=== PATIENT | female | born 1975 | race Caucasian/White ===

== ENCOUNTER 2023-09-14 18:58 | Emergency (ER) | payer OTHER, SELFPAY ==
--- NOTE | ~2023-09-14 | CT_ITS ---
EXAMINATION: CT abdomen pelvis w con DATE: 09/14/2023 23:22 INDICATION: Left lower quadrant abdominal pain TECHNIQUE: Computed tomography (CT) of the abdomen and pelvis was performed with 100 cc Omnipaque 350 intravenous contrast. The dose-length product was 1580.54 mGy-cm. Automated exposure control and ite rative reconstruction technique were employed. COMPARISON: None. FINDINGS: Lung bases unremarkable. Heart size normal. No significant pleural or pericardial effusion. Fatty infiltration of the liver. The spleen, pancreas, adrenal glands and kidneys are unremarkable. Gallbladder is present. No significant vascular abnormality. No lymphadenopathy. Small involuting cor pus luteal cyst of the left ovary measuring 2 cm. No evidence for diverticulitis. No free air or free fluid. No lymphadenopathy. No acute osseous abnormality. There is a transitional L5 vertebra. There is osteoarthritis of the hips. IMPRESSION: 1. Small involuting corpus luteal cyst of the left ovary measuring 2 cm. Reviewed, dictated and finalized at location A.
[2023-09-14 19:38] VITALS: BP 135/63; PULSE 104; RESP 20; TEMP 36.4; O2SAT 100
[2023-09-14 19:54] LABS: Basophils Absolute Auto 0.1 K/mm3 (0.0-0.1); Basophils Percent Auto 0.4 % (0.2-1.2); Eosinophils Absolute Auto 0.1 K/mm3 (0-0.3); Eosinophils Percent Auto 0.7 % (0-4.4); Hematocrit 41.1 % (37.0-47.0); Hemoglobin 12.9 g/dL (12.0-15.0); Immature Granulocyte Absolute 0.04 K/mm3 (0.00-0.031); Immature Granulocyte Percent A 0.3 % (0-0.5); Lymphocytes Absolute Auto 2.47 K/mm3 (0.9-3.2); Lymphocytes Percent Auto 18.4 % (18.3-44.2); Mean Corpuscular HGB Conc 31.4 g/dl (32-36); Mean Corpuscular Hemoglobin 27.7 pg (26-34); Mean Corpuscular Volume 88.4 fl (80-100); Mean Platelet Volume 9.5 fl (7.4-10.4); Monocytes Absolute Auto 0.7 K/mm3 (0.1-0.6); Monocytes Percent Auto 5.2 % (2.6-8.5); Neutrophils Absolute Auto 10.1 K/mm3 (1.3-6.7); Platelet Count Result 289 k/mm3 (150-375); Red Blood Count 4.65 M/mm3 (4.2-5.4); Red Cell Distribution Width 14.6 % (11.5-14.5); White Blood Count 13.4 K/mm3 (4.5-10.0)
[2023-09-14 20:06] LABS: Alanine Aminotransferase 25 U/L (6-35); Albumin Level 4.5 g/dL (3.5-5.1); Alkaline Phosphatase 72 U/L (38-126); Anion Gap 5 mmol/L (8-16); Aspartate Amino Transferase 25 U/L (14-36); Bilirubin,Total 0.7 mg/dL (0.2-1.3); Blood Urea Nitrogen 7 mg/dL (7-17); Calcium 9.5 mg/dL (8.4-10.2); Carbon Dioxide 28 mmol/L (22-30); Chloride 104 mmol/L (98-107); Estimated CRCL calculation 153 ml/min; Estimated Glomerular Filt Rate > 60; Glucose 92 mg/dL (65-110); Lipase 36 U/L (23-300); Potassium 3.7 mmol/L (3.4-5.0); Sodium 137 mmol/L (137-145)
[2023-09-14 20:16] LABS: Appearance Urine Clear (Clear); Bacteria Urine None Seen /hpf; Color Urine Yellow (Yellow); Non Pathogenic Casts 0-2; RBC Urine 0-2 /hpf (0-2); Squamous Epithelial Cell Urine None Seen /hpf (Few); WBC Urine 0-5 /hpf (0-3)
[2023-09-14 20:17] LABS: Add Urine Microscopic? YES; Bilirubin Urine Negative (Negative); Blood Urine Negative (Negative); Glucose Urine UA Negative (Negative); Ketones Urine 2+ mg/dL (Negative); Leukocyte Esterase Ur Negative LEU/UL (Negative); Nitrate Urine Negative (Negative); Protein Urine Negative (Negative); Specific Grav Ur 1.015 (1.001-1.035); Urobilinogen Urine 0.2 mg/dL (<2.0)
[2023-09-14 21:45] LABS: Pregnancy On Board Control Positive; Urine Pregnancy Test Negative
[2023-09-14] MEDS: KETOROLAC 15 MG/ML VIAL (*BKC) IV PUSH (22:29)
[2023-09-14] MEDS: SODIUM CHLORIDE 0.9% IV 1,000 ML 999 ML IV CONT (22:30)
[2023-09-14] MEDS: ONDANSETRON INJ 4 MG/2 ML VIAL IV PUSH (22:30)
[2023-09-14 22:37] VITALS: BP 133/68; PULSE 82; RESP 16; O2SAT 98
[2023-09-14 23:41] VITALS: BP 118/51; PULSE 86; RESP 16; O2SAT 100
--- NOTE | 2023-09-15 01:17 | ED.ABDPAIN ---
HPI - Abdominal Pain General Chief Complaint: Abdominal Pain Stated Complaint: left flank pain, blood in urine Time Seen by Provider: 09/14/23 21:45 History of Present Illness HPI narrative: This is a 48-year-old female, with no significant past medical history, presents to the emergency department complaining of left lower quadrant abdominal pain for the past 2 weeks worse in the past 2-3 days. The patient describes the pain as sharp and cramping rated 6/10 without radiation. She has no other complaints at this time. Related Data Allergies Allergy/AdvReac Type Severity Reaction Status Date / Time No Known Allergies Allergy Verified 09/14/23 19:42 Review of Systems Review of Systems: CONSTITUTIONAL: Denies fever, chills, or sweats. CARDIOVASCULAR: Denies chest pain, palpitations, or edema. RESPIRATORY: Denies cough or dyspnea. GASTROINTESTINAL: Left lower quadrant abdominal pain Denies nausea, vomiting, or diarrhea. GENITOURINARY: Denies dysuria or hematuria. SKIN: Denies rash or itching. MUSCULOSKELETAL: Denies back pain, joint pain, or myalgia. NEUROLOGIC: Denies headache, numbness, dizziness, or weakness. PSYCHIATRIC: Denies anxiety or depression. PMFSH Past Medical History Medical History No significant past medical history Surgical History Surgical History No significant past surgical history Social History Social History Smoking status: Never smoker Alcohol intake: never Substance use: never Exam Narrative: GENERAL: Well-developed, well-nourished, and in no acute distress. HEAD: Normocephalic, atraumatic. EYES: PERRLA and EOMI. CHEST: Clear to auscultation. No respiratory distress. No wheezes rales or rhonchi HEART: Regular rate and rhythm. No murmur heard. Normal peripheral pulses. ABDOMEN: Soft, Tender palpation in the left lower quadrant without rebound or guarding, nondistended, normal active bowel sounds. EXTREMITIES: Normal range of motion. No edema. SKIN: Warm, dry, no rash. NEURO: Alert and oriented x3. No focal deficit. Moving all 4 limbs spontaneously PSYCH: Normal mood and affect. Course Course Emergency Course: 01:10 - On re-evaluation of the pain and nausea medications, the patient states she feels much improved. CBC demonstrates elevated white blood cell count of 13 but is otherwise unremarkable. Chemistries unremarkable. UA demonstrates proteinuria but is otherwise unremarkable. CT abdomen pelvis not concerning for acute intra-abdominal process by [employer] interpretation. My review shows a small amount of contrast enhancement may be concerning for diverticulitis. Will discharge with nausea medications and antibiotics in the event of a discrepancy. I discussed these findings and recommendations with the patient. Discussed return emergency precautions including signs/symptoms of acute abdomen and intractable vomiting. Will discharge with recommendation for primary care follow-up. The patient politely declined pain medications for home. All questions answered to her satisfaction. Vital Signs Vital signs: Vital Signs Temperature 97.6 F 09/14/23 19:38 Pulse Rate 104 H 09/14/23 19:38 Respiratory Rate 20 09/14/23 19:38 Blood Pressure 135/63 09/14/23 19:38 Pulse Oximetry 100 09/14/23 19:38 Oxygen Delivery Room Air 09/14/23 19:38 Temperature 97.6 F 09/14/23 19:38 Pulse Rate 86 09/14/23 23:41 Respiratory Rate 16 09/14/23 23:41 Blood Pressure 118/51 L 09/14/23 23:41 Pulse Oximetry 100 09/14/23 23:41 Oxygen Delivery Room Air 09/14/23 19:38 MDM - Abdominal Pain MDM Narrative Medical decision making narrative: Plan: Labs, imaging, pain control, antiemetics, reassess Differential Diagnosis Differential diagnosis: Likely abdominal pain, acute appendicitis, calculu
== END 2023-09-15 01:30 | disposition home or self-care (01) ==
PROVIDERS: Emergency Provider Preventive Medicine Aerospace Medicine
DX: R10.32 Left lower quadrant pain (principal)
CPT/HCPCS: 36415; 74177; 80053; 81001; 81025; 83690; 85025; 96361; 96374; 96375; 99284; J1885; J2405; J7030; Q9967